=== PATIENT | male | born 1990 | race Caucasian/White ===

== ENCOUNTER → 2016-08-16 23:43 | Emergency (ER) | payer SELFPAY ==
[~2016-08-16 23:43] MED LIST: BACTRIM DS TABL1 TAB PO; BACTROBAN22 GM EXT; CIPRO PO; CLEOCIN PO; FLEXERIL PO; FLEXERIL10 MG PO; IBUPROFEN800 MG PO; LISINOPRIL10 MG PO; NAPROSYN500 MG PO; ORUDIS75 M1 DOB; PREDNISONE10 MG/DOSE PO; TOBREX5 ML OP; VICODIN 5/500 T1 TAB PO; ZITHROMAX PO
== END | disposition home or self-care (01) ==
LOC: CED 23:43
DX: H10.89 Other conjunctivitis (principal); I10 Essential (primary) hypertension
CPT/HCPCS: 99283